=== PATIENT | female | born 1970 | race Caucasian/White ===

== ENCOUNTER 2018-04-26 06:41 | Emergency (ER) | payer OTHER ==
[~2018-04-26] VITALS: Ht 167.6 cm; Wt 71.9 kg
[2018-04-26 06:46] VITALS: BP 127/65; PULSE 59; RESP 18; TEMP 97.7; O2SAT 97
[2018-04-26] MEDS ORDERED: OMEGCAP PO (06:56)
[2018-04-26] MEDS ORDERED: TUMERIC PO (06:56)
[2018-04-26] MEDS ORDERED: MULTTAB67 PO (06:56)
[2018-04-26 07:08] LABS: BILIRUBIN, URINE NEG (NEG); BLOOD, URINE NEG (NEG); GLUCOSE,URINE NEG (NEG); KETONE, URINE 15 mg/dL (NEG); NITRITE,URINE NEG (NEG); PH, URINE 6.5 (5.0-8.5); URINE COLOR YELLOW (YELLW/STRAW); URINE LEUKOCYTE ESTERASE NEG (NEG)
[2018-04-26 07:16] LABS: BACTERIA, URINE MANY /hpf; SQUAMOUS EPITHELIAL CELL URINE 0-5 /hpf (0-5)
[2018-04-26] MEDS ORDERED: SODIUM CHLOR 0.9% 1000 ML INJ 1,000 ML IV SCH (07:31)
[2018-04-26 07:45] LABS: AUTOMATED NEUTROPHIL # 3.1 TH/MM3 (1.8-7.7); BASOPHIL # 0.1 TH/MM3 (0-0.2); BASOPHIL % 1.3 % (0.0-2.0); EOSINOPHIL # 0.1 TH/MM3 (0-0.4); EOSINOPHIL % 2.1 % (0.0-4.0); HEMATOCRIT 37.7 % (35.0-46.0); HEMOGLOBIN 13.1 GM/DL (11.6-15.3); LYMPH % 39.4 % (9.0-44.0); LYMPHOCYTE # 2.3 TH/MM3 (1.0-4.8); MEAN CELL VOLUME 87.3 FL (80.0-100.0); MEAN CORPUSCULAR HEMOGLOBIN 30.4 PG (27.0-34.0); MEAN CORPUSCULAR HGB CONC 34.8 % (32.0-36.0); MEAN PLATELET VOLUME 8.5 FL (7.0-11.0); MONO % 5.5 % (0.0-8.0); MONOCYTE # 0.3 TH/MM3 (0-0.9); NEUT % 51.7 % (16.0-70.0); PLATELET COUNT 356 TH/MM3 (150-450); RED BLOOD COUNT 4.32 MIL/MM3 (4.00-5.30); RED CELL DISTRIBUTION WIDTH 12.2 % (11.6-17.2); WHITE BLOOD COUNT 5.9 TH/MM3 (4.0-11.0)
[2018-04-26] MEDS ORDERED: ONDANSETRON HCL 4 MG/2 ML VIAL IVP ONE (07:45)
[2018-04-26] MEDS ORDERED: MORPHINE SULFATE 4 MG/ML INJ IV PUSH ONE (07:45)
[2018-04-26] MEDS ORDERED: SODIUM CHLORIDE 0.9% FLUSH 10 ML FLUSH IV FLUSH PRN (07:45)
--- NOTE | 2018-04-26 07:49 | PD ---
HPI Chief Complaint: Abdominal Pain Time Seen by Provider: 07:11 Travel History International Travel<30 days: No Contact w/Intl Traveler<30days: No Traveled to known affect area: No History of Present Illness HPI Patient presents complaining of abdominal pain in upper quadrant regions, radiating to the back, since Sunday, 6 out of 10, associated with nausea, not improved by antacid use. No alleviating or aggravating factors. No associated factors such as fever, rash, vomiting, diarrhea, headache, neck pain, chest pain , runny nose/sore throat/cough, hematuria/dysuria/frequency/urgency,, also denies vaginal bleeding or vaginal discharge. No nondrug allergies Past medical history significant for appendectomy in [facility] Past Medical History Medical History: Denies Significant Hx Diminished Hearing: No Tetanus Vaccination: > 5 Years ?: Not LMP: 04/12/18 Past Surgical History Appendectomy: Yes Section: Yes Other Surgery: Yes (viens on legs removed) Social History Alcohol Use: Yes (very rare) Tobacco Use: No Substance Use: No Allergies-Medications (Allergen,Severity, Reaction): Coded Allergies: No Known Allergies (Unverified , 04/26/18) Reported Meds & Prescriptions Reported Meds & Active Scripts Active Reported [Tumeric] 1 Cap PO BID [place]-3 Fish Oil/Vitamin (Fish Oil-Cholecalciferol) 1,000-1,000 Mg Cap 1 Cap PO DAILY Multiple Vitamin 1 Tab 1 Tab PO DAILY Review of Systems General / Constitutional: No: Fever Eyes: No: Visual changes HENT: No: Headaches Cardiovascular: No: Chest Pain or Discomfort Respiratory: No: Shortness of Breath Gastrointestinal: Positive: Nausea, Abdominal Pain Genitourinary: No: Dysuria Musculoskeletal: No: Pain Skin: No Rash Neurologic: No: Weakness Psychiatric: No: Depression Endocrine: No: Polydipsia Hematologic/Lymphatic: No: Easy Bruising Physical Exam Narrative GENERAL: SKIN: Warm and dry. HEAD: Atraumatic. Normocephalic. EYES: Pupils equal and round. No scleral icterus. No injection or drainage. ENT: No nasal bleeding or discharge. Mucous membranes pink and moist. NECK: Trachea midline. No JVD. CARDIOVASCULAR: Regular rate and rhythm. RESPIRATORY: No accessory muscle use. Clear to auscultation. Breath sounds equal bilaterally. GASTROINTESTINAL: Abdomen soft, mild epigastric tenderness to deep palpation . No rebound/guarding/rigidity MUSCULOSKELETAL: Extremities without clubbing, cyanosis, or edema. No obvious deformities. Left CVA tenderness NEUROLOGICAL: Awake and alert. No obvious cranial nerve deficits. Motor grossly within normal limits. Five out of 5 muscle strength in the arms and legs. Normal speech. PSYCHIATRIC: Appropriate mood and affect; insight and judgment normal. Data Data Last Documented VS Vital Signs Date Time Temp Pulse Resp B/P (MAP) Pulse Ox O2 Delivery O2 Flow Rate FiO2 04/26/18 08:33 100 04/26/18 07:13 16 04/26/18 06:46 97.7 59 127/65 (85) Orders Orders Urinalysis - C+S If Indicated (04/26/18 06:54) Ed Urine Pregnancytest Poc (04/26/18 07:02) Urine Culture (04/26/18 07:00) Complete Blood Count With Diff (04/26/18 07:31) Comprehensive Metabolic Panel (04/26/18 07:31) Lipase (04/26/18 07:31) Prothrombin Time / Inr (Pt) (04/26/18 07:31) Act Partial Throm Time (Ptt) (04/26/18 07:31) Ct Abd/Pel W/O Iv Contrast (04/26/18 07:31) Iv Access Insert/Monitor (04/26/18 07:31) Ecg Monitoring (04/26/18 07:31) Oximetry (04/26/18 07:31) NPO (04/26/18 07:31) Morphine Inj (Morphine Inj) (04/26/18 07:45) Ondansetron Inj (Zofran Inj) (04/26/18 07:45) Sodium Chlor 0.9% 1000 Ml Inj (Ns 1000 M (04/26/18 07:31) Sodium Chloride 0.9% Flush (Ns Flush) (04/26/18 07:45) Labs Laboratory Tests Test 04/26/18 07:00 04/26/18 07:38 Urine Color YELLOW Urine Turbidity CLEAR Urine pH 6.5 Urine Specific [place] 1.010 Urine Protein NEG mg/dL Urine Glucose (UA) NEG mg/dL Urine Ketones 15 mg/dL Urine Occult Blood NEG Urine Nitrite NEG Urine Bilirubin NEG Urine Urobilinogen 0.2 MG/DL Urine Leukocyte Esterase NEG Urine Squamous Epithelial Cells 0-5 /hpf Urine Bacteria MANY /hpf Microscopic Urinalysis Comment CULTURE INDICATED White Blood Count 5.9 TH/MM3 Red Blood Count 4.32 MIL/MM3 Hemoglobin 13.1 GM/DL Hematocrit 37.7 % Mean Corpuscular Volume 87.3 FL Mean Corpuscular Hemoglobin 30.4 PG Mean Corpuscular Hemoglobin Concent 34.8 % Red Cell Distribution Width 12.2 % Platelet Count 356 TH/MM3 Mean Platelet Volume 8.5 FL Neutrophils (%) (Auto) 51.7 % Lymphocytes (%) (Auto) 39.4 % Monocytes (%) (Auto) 5.5 % Eosinophils (%) (Auto) 2.1 % Basophils (%) (Auto) 1.3 % Neutrophils # (Auto) 3.1 TH/MM3 Lymphocytes # (Auto) 2.3 TH/MM3 Monocytes # (Auto) 0.3 TH/MM3 Eosinophils # (Auto) 0.1 TH/MM3 Basophils # (Auto) 0.1 TH/MM3 CBC Comment DIFF FINAL Differential Comment Blood Urea Nitrogen 18 MG/DL Creatinine 0.76 MG/DL Random Glucose 98 MG/DL Total Protein 7.2 GM/DL Albumin 3.6 GM/DL Calcium Level 8.8 MG/DL Alkaline Phosphatase 63 U/L Aspartate Amino Transf (AST/SGOT) 11 U/L Alanine Aminotransferase (ALT/SGPT) 18 U/L Total Bilirubin 0.4 MG/DL Sodium Level 139 MEQ/L Potassium Level 3.6 MEQ/L Chloride Level 104 MEQ/L Carbon Dioxide Level 28.0 MEQ/L Anion Gap 7 MEQ/L Estimat Glomerular Filtration Rate 82 ML/MIN Lipase 169 U/L [facility] Medical Decision Making Medical Screen Exam Complete: Yes Emergency Medical Condition: Yes Medical Record Reviewed: Yes Differential Diagnosis Colitis versus diverticulitis versus biliary colic versus cholecystitis versus pancreatitis versus hepatitis versus pyelonephritis Narrative Course CBC shows no leukocytosis, no anemia, normal platelet count, UA is consistent with a UTI Elect lites are all within normal limits, normal kidney liver and pancreatic functions. Diagnosis Primary Impression: Acute pyelonephritis Patient Instructions: General Instructions, Kidney Infection (ED) Scripts Ketorolac (Ketorolac) 10 Mg Tab 10 MG PO TID for Pain Management for 5 Days, #15 TAB 0 Refills Prov: Hoang Reed MD 04/26/18 Ciprofloxacin (Cipro) 500 Mg Tab 500 MG PO BID for Infection for 10 Days, #20 TAB 0 Refills Prov: Hoang Reed MD 04/26/18 Ondansetron Odt (Zofran Odt) 4 Mg Tab 4 MG SL Q6HR Y for Nausea/Vomiting, #20 TAB 0 Refills Prov: Hoang Reed MD 04/26/18 Disposition: 01 DISCHARGE HOME Condition: Stable Hoang Reed MD Apr 26, 2018 07:49
[2018-04-26 08:03] LABS: CHLORIDE 104 MEQ/L (98-107); SODIUM (NA) 139 MEQ/L (136-145)
[2018-04-26 08:06] LABS: CALCIUM 8.8 MG/DL (8.5-10.1)
[2018-04-26 08:07] LABS: ALBUMIN 3.6 GM/DL (3.4-5.0); BLOOD UREA NITROGEN 18 MG/DL (7-18); GLUCOSE,RANDOM 98 MG/DL (74-106)
[2018-04-26 08:09] LABS: ALT (GPT) 18 U/L (10-53); AST (GOT) 11 U/L (15-37)
[2018-04-26 08:10] LABS: CREATININE 0.76 MG/DL (0.50-1.00); GLOMERULAR FILTRATION RATE 82 ML/MIN (>89)
[2018-04-26 08:11] LABS: TOTAL BILIRUBIN ADULT 0.4 MG/DL (0.2-1.0); TOTAL PROTEIN 7.2 GM/DL (6.4-8.2)
[2018-04-26 08:12] LABS: ALKALINE PHOSPHATASE 63 U/L (45-117)
--- NOTE | 2018-04-26 08:16 | RADRPT ---
EXAM DATE: 04/26/2018 8:01 AM EDT AGE/SEX: 48 years / Female INDICATIONS: Upper abdominal pain and low back pain. CLINICAL DATA: This is the patient's initial encounter. Patient reports that signs and symptoms have been present for 3 days and indicates a pain score of 8/10. MEDICAL/SURGICAL HISTORY: None. Appendectomy. section. RADIATION DOSE: 12.24 CTDI (mGy) COMPARISON: No prior [facility] exams available for comparison. TECHNIQUE: Multiple contiguous axial images were obtained through the abdomen. Images were obtained using multiple row detector helical technique. Using dose reduction techniques, radiation dose was ke pt as low as reasonably achievable to obtain optimal diagnostic quality images. FINDINGS: The lower lungs are clear. Liver, spleen, pancreas and adrenals unremarkable Left kidney appears normal. Mild prominence of collecting system of the right. There are no renal calcifications identified. Cecum and terminal ileum appear unremarkable. No inflammatory changes in the abdomen In the pelvis prominent fibroid uterus without free fluid. Large amount of stool is seen in the colon . Review of bone windows reveals only degenerative changes in the lower lumbar spine. CONCLUSION: 1. Negative for acute process. I do not see an etiology of patient's abdominal and low back pain 2. Pyelonephritis can be missed without intravenous contrast. Electronically signed by: Familia Kiser MD 04/26/2018 8:15 AM EDT
[2018-04-26 08:33] VITALS: O2SAT 100
[2018-04-26] MEDS ORDERED: KETO10 PO (08:45)
[2018-04-26] MEDS ORDERED: ZOFR4TAB3 SL (08:45)
[2018-04-26] MEDS ORDERED: cefTRIAXone INJ 2,000 MG in SODIUM CHLORIDE 0.9% INJ 100 ML IV ONE (08:45)
[2018-04-26] MEDS ORDERED: CIPR-9 PO (08:45)
[2018-04-26 10:08] LABS: PROTHROMBIN TIME - PATIENT 10.5 SEC (9.8-11.6)
[2018-04-26 10:20] VITALS: BP 5/5
[2018-04-29] MEDS ORDERED: TURM500C7 PO (15:51)
== END 2018-04-26 11:29 | disposition home or self-care (01) ==
LOC: PHED 06:41
DX: N10 Acute pyelonephritis (principal)
CPT/HCPCS: 74176; 80053; 81001; 83690; 84703; 85025; 85610; 85730; 87086; 96361; 96365; 96375; 99284; J0696; J2270; J2405; J7030